=== PATIENT | female | born 1985 | race Caucasian/White ===

== ENCOUNTER → 2018-03-27 | Outpatient (REF) | payer OTHER | LOC: M SFHCLERA 20:01 | DX: J02.9 Acute pharyngitis, unspecified (principal) ==

== ENCOUNTER → 2018-04-05 | Outpatient (CLI) | payer OTHER | LOC: M LRY 13:29 | DX: R05 Cough (principal) | CPT/HCPCS: 94640 ==

== ENCOUNTER → 2019-01-26 | Outpatient (CLI) | payer OTHER | LOC: M WUC 16:32 | PROVIDERS: ATTEND Physician Assistant | DX: Z33.1 Pregnant state, incidental (principal) ==

== ENCOUNTER 2019-09-02 20:08 | Inpatient (IN) | payer OTHER ==
[~2019-09-02] VITALS: Ht 167.6 cm; Wt 91.1 kg
[2019-09-02 20:33] VITALS: BP 111/76
[2019-09-02] MEDS ORDERED: LR 1,000 ML IV SCH (21:09)
[2019-09-02] MEDS ORDERED: LACTATED RINGER'S 1000 ML IV STA (21:09)
[2019-09-02 21:34] LABS: BASO % 0.2 % (0.0-1.0); EOS % 0.3 % (0.0-3.0); HEMATOCRIT 37.5 % (36.0-47.0); HEMOGLOBIN 13.1 g/dl (12.0-15.5); LYMPH # 1.9 10^3/uL (1.5-5.0); LYMPH % 16.3 % (24.0-44.0); MEAN CORPUSCULAR HEMOGLOBIN 32.1 pg (27.0-33.0); MEAN CORPUSCULAR HGB CONC 34.9 g/dl (32.0-36.5); MEAN CORPUSCULAR VOLUME 91.9 fl (80.0-96.0); MONO # 0.8 10^3/uL (0.0-0.8); MONO % 6.5 % (0.0-5.0); PLATELET COUNT, AUTOMATED 184 10^3/uL (150-450); RED BLOOD COUNT 4.08 10^6/uL (4.00-5.40); WHITE BLOOD COUNT 11.8 10^3/uL (4.0-10.0)
[2019-09-02] MEDS ORDERED: OXYTOCIN 30 UNITS IN 0.9% NaCl 500ML IV BAG (J2590) As Ordered ONE (21:35)
--- NOTE | 2019-09-02 21:38 | HPEPDOC ---
Obstetrical History & Physical General Date of Admission Sep 02, 2019 at 21:01 History of Present Illness Magalyida is a 33yo with SIUP at 39w2d by lmp c/w 8wk u/s presenting with regular painful ctx that started at noon today and have become closer and stronger. No vaginal bleeding or loss of fluid. Good movement. No f/c/CP/SOB. Chief Complaint: Contractions, term Information Provided By: Patient Care Care: Good Care Dating Final EDC: Sep 07, 2019 Final EDC by: LMP, 1st trimester (US) Antepartum Course Diagnos(e)s AMA (age 33), elevated MSAFP evaluated by [facility] with normal anatomy scan and growth scans (12 August 54%ile), GERD Height (inches): 66 Pre- weight (lbs.): 165 Admission Weight (lbs.): 199 Change in Weight (lbs.): 34 Past Medical History Past Obstetrical History : Past Obstetrical History: Multigravida (2006 uncomplicated at 39wk F 6 .5lb, 2009 uncomplicated at 39wk M 6.5lb) Past Medical History Medical History GERD, oral HSV I treated with valtrex Surgical History: Denies/None Family History Significant Family History: No pertinent family hx Social History Marital Status: Family situation: Spouse/partner home Psychosocial History: No pertinent psych hx * Smoker: non-smoker Alcohol: Denies Drugs: denies Imunizations Tdap status: declined Influenza Status: current Allergies Coded Allergies: No Known Allergies (Unverified , 09/02/19) Physical Examination Physical Examination GENERAL: Alert and oriented times three ABDOMEN: Gravid and non-tender to touch. FETUS: Is vertex (VTX) by sterile vaginal examination (SVE) per RN EXTREMITIES: No edema of BLE Laboratory Data 24H LABS Laboratory Tests 2 09/02/19 21:09: Serology Scanned Report Hepatitis B Testing Pertinent Laboratoy Data Blood Type: B+ RBC Antibody Screen: Negative HIV: Negative Hepatitis B: Negative Hepatitis C: Unknown Rapid Plasma Reagin: Nonreactive Rubella: Immune Varicella: Immune Chlamydia/Gonorrhea: Negative Group B Streptococcus: Negative Quad Screen Test: Positive (MSAFP was elevated, [id number] normal ) Glucose Tolerance Test: 117 Anatomy Ultrasound Ultrasound Date: Apr 24, 2019 Placenta Location: Anterior Normal Anatomy: Yes Placenta Previa: No Steroid Therapy Steroid Therapy: No Vaginal Examination Dilation: 8 cm Effacement: 80% Station: -2 Cervical Consistency: Soft Cervical Position: Middle Presentation: Cephalic presentation Assessment Heart Rate (FHR): 130 Variability: Moderate Accelerations: Positive Decelerations: None Tocometer Contractions: Yes Frequency: regular, every 3-7 min. Duration: greater than 60 seconds Strength: palpated as strong Assessment/Plan Assessment Arteida is a 33yo with SIUP at 39w2d by lmp c/w 8wk u/s in active labor with SCE 8/80/-2, cephalic, ctx q5min. Vitals wnl, benign exam. Cat I FHRT. GBS negative. AROM performed just after admission, tolerated well, clear fluid. course and PMHx significant for: AMA (age 33), elevated MSAFP evaluated by [facility] with normal anatomy scan and growth scans (12 August 54%ile), GERD, oral HSV I treated with valtrex Plan Admit and orient. Counseled and consented regarding delivery. Diet: clear liquids Group B Streptococcus (GBS) negative Labs and intravenous (IV) per unit protocol. Lactated Ringers (LR): Bolus 500 mL, then at 125 mL/hr. Anticipate normal spontaneous delivery () MD Lia Ken Katrina D MD Sep 02, 2019 21:25
--- NOTE | 2019-09-02 22:51 | DNPDOC ---
[facility] Delivery Note Delivery Note DATE OF DELIVERY: 09/02/2019 PREDELIVERY DIAGNOSIS: 39w2d gestation and labor. POST DELIVERY DIAGNOSIS: Delivered. PROCEDURE: Spontaneous vaginal delivery [employer] MANAGER: Dr. Melia Fitzgerald MD ANESTHESIA: none ESTIMATED BLOOD LOSS: 250 mL. FINDINGS: 6 pound 4 ounce (2840g) female infant, Score 9/9 DELIVERY SUMMARY: Arteida is a 33yo [id number] s/p uncomplicated at 39w2d on 02 Sep 2019 at 2229 after presenting in active labor. She was 8cm on admission and after AROM quickly progressed to C/C/0 at which point she began pushing. Infant's head delivered OA, restituted CAMILO. Right anterior shoulder delivered followed by posterior shoulder and corpus. Infant had spontaneous cry, vigorous, apgars 9/9, placed on maternal abdomen- nose and mouth suctioned with bulb suction. Cord clamped x2 after 2 minutes and cut by FOB. With uterine massage and traction on the cord, placenta delivered spontaneously and intact with 3 vessel centrally inserted cord. Uterine massage performed and IV pitocin given per protocol, fundus then firm at u-2cm and minimal bleeding noted. Inspection of perineum and vagina revealed a superficial small left labial laceration repaired with 4-0 vicryl suture with a figure of 8 with excellent reapproximation and complete hemostasis. All counts correct x2. Mom and infant doing well when I left the room. MD Lia Ken Katrina D MD Sep 02, 2019 22:51
[2019-09-02] MEDS ORDERED: OXYTOCIN DRIP 30 UNITS in IV 1 EA IV SCH (22:53)
[2019-09-02] MEDS ORDERED: MEASLES,MUMPS,RUBELLA VACCINE INJ (MMR-II) (90707) SC SCH (23:00)
[2019-09-02] MEDS ORDERED: DIBUCAINE 1% OINTMENT 30GM TOP PRN (23:00)
[2019-09-02] MEDS ORDERED: ACETAMINOPHEN TAB 650MG DOSE (2X325MG) PO PRN (23:00)
[2019-09-02] MEDS ORDERED: DOCUSATE SODIUM 100 MG CAP PO PRN (23:00)
[2019-09-02] MEDS ORDERED: RHOGAM 300 MCG (1500 IU) INJ (J2790) IM SCH (23:00)
[2019-09-02] MEDS ORDERED: IBUPROFEN 600 MG TAB PO PRN (23:00)
[2019-09-02 23:07] VITALS: BP 149/96
[2019-09-02 23:22] VITALS: BP 129/73
[2019-09-02 23:37] VITALS: BP 126/78
[2019-09-02 23:53] VITALS: BP 135/87
[2019-09-03 00:16] VITALS: BP 110/63
[2019-09-03] MEDS: IBUPROFEN 800 MG TAB PO PRN ×3 (00:16→19:46)
[2019-09-03 05:52] VITALS: BP 96/55
--- NOTE | 2019-09-03 08:31 | IPNPDOC ---
Progress Note Date of Service: Sep 03, 2019 Day#: 1 Progress Note PPD1 SUBJECT: Jaymie is a 33yo [id number] s/p uncomplicated at 39w2d on 02 Sep 2019 at 2229 after presenting in active labor, doing well day # 1. She has been ambulating, voiding spontaneously without issue. Has not yet eaten, but no vomiting- slight nausea, she feels is from lack of sleep. Breast feeding without issue. Reports lochia is like a normal period. No f/c/CP/SOB. OBJECTIVE: VITAL SIGNS: Within normal limits, afebrile. Alert and oriented times three. Abdomen: Fundus firm at U-2. Soft, NTTP. Extremities: no pain with palpation of calves ASSESSMENT: Jaymie is a 33yo [id number] s/p uncomplicated at 39w2d on 02 Sep 2019 at 2229 after presenting in active labor, doing well day # 1. Vitals within normal limits, afebrile, hemodynamically stable with no evidence of infection. PLAN: 1. Routine care 2. Tylenol and Motrin for pain. 3. Encourage breast feeding and ambulation. 4. Undecided on contraception, will readdress at PP visit 5. Regular diet 6. Likely discharge home tomorrow morning Dr. Melia Fitzgerald MD VS, I&O, 24H, [facility] Vital Signs/I&O Vital Signs Date Time Temp Pulse Resp B/P (MAP) Pulse Ox O2 Delivery O2 Flow Rate FiO2 09/03/19 05:52 98.7 72 16 96/55 (69) I&O- Last 24 Hours up to 6 AM 09/03/19 05:59 Intake Total 1000 ml Output Total 550 ml Balance 450 ml Laboratory Data 24H LABS Laboratory Tests 2 09/02/19 21:09: Serology Scanned Report Hepatitis B Testing 09/02/19 21:22: Immature Granulocyte % (Auto) 0.7, Neutrophils (%) (Auto) 76.0H, Lymphocytes (%) (Auto) 16.3L, Monocytes (%) (Auto) 6.5H, Eosinophils (%) (Auto) 0.3, Basophils (%) (Auto) 0.2, Neutrophils # (Auto) 9.0H, Lymphocytes # (Auto) 1.9, Monocytes # (Auto) 0.8, Eosinophils # (Auto) 0.0, Basophils # (Auto) 0.0, Nucleated Red Blood Cells % (auto) 0.0 CBC/BMP Laboratory Tests 09/02/19 21:22 Melia Fitzgerald MD Sep 03, 2019 08:31
[2019-09-03 13:35] VITALS: BP 118/71
[2019-09-03] MEDS: ACETAMINOPHEN 500 MG TAB PO PRN (14:01)
[2019-09-03] MEDS: PRENATAL VITAMINS CHEWABLE TABLET PO SCH (14:09)
[2019-09-03 18:02] VITALS: BP 102/72
[2019-09-04 06:00] VITALS: BP 110/77
[2019-09-04] MEDS ORDERED: IBUP80TA PO (07:13)
[2019-09-04] MEDS ORDERED: DOCU100C16 PO (07:13)
[2019-09-04] MEDS ORDERED: DIBU10OI TOP (07:13)
[2019-09-04] MEDS: IBUPROFEN 800 MG TAB PO PRN (07:53)
[2019-09-04] MEDS: PRENATAL VITAMINS CHEWABLE TABLET PO SCH (07:53)
--- NOTE | 2019-09-04 09:20 | DSES ---
DATE OF ADMISSION: 09/02/2019 DATE OF DISCHARGE: 09/04/2019 This lady is a 33-year-old, 3, now para 3, admitted at 39 and 2 weeks of gestation with contractions who had a spontaneous vaginal delivery of a female infant 6 pounds 4 ounces, 2840 grams, Apgars of 9 and 9 at one and five minutes respectively. On her first day, we discussed phlebitis, cystitis, mastitis, endometritis and cellulitis; diet, exercise and pain management; perineal, breast and wound care. The rest of the examination is unremarkable. She is normocephalic, atraumatic. Neck full range of motion. Pupils equal and reactive to light. Distal pulses symmetric. No evidence of deep vein thrombosis (DVT), pulmonary embolus (PE) or superficial phlebitis. Chest is clear bilaterally at bases. No wheezes or rhonchi. No costovertebral angle (CVA) tenderness. Abdomen: Soft. Uterus two below. Four quadrant bowel sounds are noted. Perineum is intact. She has no rashes, lesions or pruritus. No arthralgia or myalgia. No complaint of joint pain. No complaint of cough, wheeze, shortness of breath or dyspnea on exertion. No nausea, vomiting, diarrhea or constipation. No urgency or frequency. No incontinence either. Her blood pressure today is 110/77, respirations are 18, pulse 75 and temperature 98.3. Her admitting hemoglobin is 13.1, hematocrit 37.5 and platelets 184. The patient is planning on discharge today. Medications were dispensed at [facility]. 6-week checkup at [facility]. All questions were answered. 20-minute discussion. edited: 09/05/2019 0746 bal BARRON
[2019-09-04] MEDS: ACETAMINOPHEN 500 MG TAB PO PRN (12:00)
== END 2019-09-04 12:05 | disposition home or self-care (01) | DRG 807 ==
LOC: M LDO 20:08 → M LDI 21:01 → M OBS 09-03 13:37
PROVIDERS: ADMIT Obstetrics & Gynecology; ATTEND Obstetrics & Gynecology
PROC: 10E0XZZ Delivery of Products of Conception, External Approach (ICD-10-PCS; principal; 2019-09-02)
PROC: 0HQ9XZZ Repair Perineum Skin, External Approach (ICD-10-PCS; 2019-09-02)
PROC: 10907ZC Drainage of Amniotic Fluid, Therapeutic from Products of Conception, Via Natural or Artificial Opening (ICD-10-PCS; 2019-09-02)
DX: O62.3 Precipitate labor (principal); Z37.0 Single live birth; K21.9 Gastro-esophageal reflux disease without esophagitis; Z3A.39 39 weeks gestation of pregnancy; O99.62 Diseases of the digestive system complicating childbirth; O70.0 First degree perineal laceration during delivery

== ENCOUNTER 2020-05-11 14:13 | Outpatient (RCR) | payer OTHER ==
[~2020-05-11 14:13] MED LIST: ANEC4CRE3 TOP; DIBU10OI TOP; DOCU100C16 PO; IBUP80TA PO
== END 2020-05-20 ==
LOC: M PT 14:13
PROVIDERS: ATTEND Physician Assistant
DX: Z47.89 Encounter for other orthopedic aftercare (principal); M51.36 Other intervertebral disc degeneration, lumbar region

== ENCOUNTER 2020-05-25 13:43 | Outpatient (RCR) | payer OTHER | END 2020-06-20 | LOC: M PT 13:43 | PROVIDERS: ATTEND Physician Assistant | DX: M51.36 Other intervertebral disc degeneration, lumbar region (principal) ==

== ENCOUNTER → 2025-01-22 | Outpatient (RCR) ==
[~2025-01-22] MED LIST changes: -DIBU10OI TOP; +DIBU28OI2 TOP
== END ==
LOC: M EMPSKH 01-12 13:39
PROVIDERS: ATTEND Family Medicine
DX: Z20.828 Contact with and (suspected) exposure to other viral communicable diseases (principal)